=== PATIENT | male | born 1985 | race American Indian/Alaskan Native ===

== ENCOUNTER 2020-12-12 06:41 | Emergency (ER) | payer SELFPAY ==
[2020-12-12 06:51] VITALS: BP 140/77
[2020-12-12] MEDS ORDERED: ASPIRIN 325 MG TAB PO ONE (06:57)
[2020-12-12 07:35] LABS: Basophils % (Auto) 0.5 % (0.0-1.8); Eosinophils # (Auto) 0.1 K/mm3 (0.0-0.4); Eosinophils % (Auto) 1.4 % (0.0-4.3); Hematocrit 44.6 % (35.5-45.6); Hemoglobin 15.3 gm/dl (11.8-15.2); Lymphocytes # (Auto) 1.1 K/mm3 (1.2-5.4); Lymphocytes % (Auto) 25.7 % (13.4-35.0); Mean Corpuscular HGB Conc 34 % (32-34); Mean Corpuscular Volume 87 fl (84-94); Monocytes # (Auto) 0.3 K/mm3 (0.0-0.8); Monocytes % (Auto) 7.2 % (0.0-7.3); Platelet Count 293 K/mm3 (140-440); Red Blood Count 5.13 M/mm3 (3.65-5.03); Red Cell Distribution Width 13.2 % (13.2-15.2)
[2020-12-12 07:45] LABS: INR 0.84 (0.87-1.13)
[2020-12-12 08:01] LABS: Alanine Aminotransferase 33 units/L (7-56); Albumin 4.1 g/dL (3.9-5); BUN/Creatinine Ratio 8; Blood Urea Nitrogen 8 mg/dL (9-20); Calcium 8.6 mg/dL (8.4-10.2); Hemolysis Index 9
--- NOTE | 2020-12-12 08:01 | Emergency Department Report ---
ED Chest Pain HPI - General Chief Complaint: Chest Pain Stated Complaint: HEAVY LIFTING/CHEST PAIN Time Seen by Provider: 12/12/20 08:00 Source: patient Mode of arrival: Ambulatory Limitations: No Limitations - History of Present Illness Initial Comments: Patient is a 34-year-old -[place] male that came to the ER after lifting a heavy object at work and experiencing what he calls muscle spasm across his left chest into his left shoulder. Patient denies nausea vomiting or diaphoresis. He has no cardiac history. He is otherwise healthy. He has no risk factors for coronary disease. Pain is worse with movement. Patient denies fall or trauma. Labs, x-ray and EKG noted as ordered by patrol supervisor Complaint: chest pain -: Sudden, hour(s) Onset: other Pain Location: left chest Pain Radiation: other Severity: mild Quality: other (spasm) Improves With: nothing Worsens With: nothing Treatments Prior to Arrival: none Aspirin use within the Past 7 Days: (0) No - Related Data Previous Rx's Medication Instructions Recorded Last Taken Type Cyclobenzaprine [Flexeril] 10 mg PO TID PRN #10 tablet 12/12/20 Unknown Rx Ibuprofen Oral Liqd [Motrin] 800 mg PO TID PRN #500 ml 12/12/20 Unknown Rx Allergies Allergy/AdvReac Type Severity Reaction Status Date / Time blueberry Allergy Itching Verified 12/12/20 06:47 Heart Score - HEART Score History: Slightly suspicious EKG: Normal Age: < 45 Risk factors: No known risk factors Troponin: < normal limit HEART Score: 0 - EKG Read Time Time EKG Completed: 07:00 EKG Read Time: 07:00 - Critical Actions Critical Actions: 0-3 pts:0.9-1.7%risk of adverse cardiac event.Candidate for discharge ED Review of Systems ROS: Stated complaint: HEAVY LIFTING/CHEST PAIN Other details as noted in HPI Comment: All other systems reviewed and negative ED Past Medical Hx - Past Medical History Previous Medical History?: No - Surgical History Past Surgical History?: Yes Additional Surgical History: cyst removal on left side of neck - Family History Family history: no significant - Social History Smoking Status: Never Smoker Substance Use Type: None - Medications Home Medications: Home Medications Medication Instructions Recorded Confirmed Last Taken Type Cyclobenzaprine [Flexeril] 10 mg PO TID PRN #10 tablet 12/12/20 Unknown Rx Ibuprofen Oral Liqd [Motrin] 800 mg PO TID PRN #500 ml 12/12/20 Unknown Rx ED Physical Exam - General Limitations: No Limitations General appearance: alert, in no apparent distress - Head Head exam: Present: atraumatic, normocephalic - Eye Eye exam: Present: normal appearance - ENT ENT exam: Present: mucous membranes moist - Neck Neck exam: Present: normal inspection - Respiratory Respiratory exam: Present: normal lung sounds bilaterally. Absent: respiratory distress - Cardiovascular Cardiovascular Exam: Present: regular rate, normal rhythm. Absent: systolic murmur, diastolic murmur, rubs, gallop - GI/Abdominal GI/Abdominal exam: Present: soft, normal bowel sounds - Rectal Rectal exam: Present: deferred - Extremities Exam Extremities exam: Present: normal inspection - Back Exam Back exam: Present: normal inspection - Neurological Exam Neurological exam: Present: alert, oriented X3 - Psychiatric Psychiatric exam: Present: normal affect, normal mood - Skin Skin exam: Present: warm, dry, intact, normal color. Absent: rash ED Course Vital Signs 12/12/20 06:45 Temperature 99.0 F Pulse Rate 69 Respiratory 18 Rate Blood Pressure 140/77 O2 Sat by Pulse 97 Oximetry HÉCTOR score - Héctor Score Age > 65: (0) No Aspirin use within the Past 7 Days: (0) No 3 or more CAD Risk Factors: (0) No 2 or more Angina events in past 24 hrs: (0) No Known CAD with more than 50% Stenosis: (0) No Elevated Cardiac Markers: (0) No ST Deviation Greater than 0.5mm: (0) No HÉCTOR Score: 0 ED Medical Decision Making - Lab Data Result diagrams: 12/12/20 07:21 12/12/20 07:21 - EKG Data EKG shows normal: sinus rhythm Rate: normal - EKG Data When compared to previous EKG there are: no significant change Interpretation: no acute changes - Radiology Data Radiology results: report reviewed, image reviewed [facility] - Medical Decision Making Vital Signs 12/12/20 06:45 Temperature 99.0 F Pulse Rate 69 Respiratory 18 Rate Blood Pressure 140/77 O2 Sat by Pulse 97 Oximetry Labs 12/12/20 12/12/20 12/12/20 07:21 07:21 07:21 WBC 4.3 L RBC 5.13 H Hgb 15.3 H Hct 44.6 MCV 87 MCH 30 MCHC 34 RDW 13.2 Plt Count 293 Lymph % (Auto) 25.7 [place] % (Auto) 7.2 Eos % (Auto) 1.4 Baso % (Auto) 0.5 Lymph # (Auto) 1.1 L [place] # (Auto) 0.3 Eos # (Auto) 0.1 Baso # (Auto) 0.0 Seg Neutrophils % 65.2 Seg Neutrophils # 2.8 PT 13.1 INR 0.84 L Sodium 139 Potassium 4.0 Chloride 105.2 Carbon Dioxide 26 Anion Gap 12 BUN 8 L Creatinine 1.0 Estimated GFR > 60 BUN/Creatinine Ratio 8 Glucose 105 H Calcium 8.6 Total Bilirubin 0.50 AST 23 ALT 33 Alkaline Phosphatase 47 Troponin T < 0.010 Total Protein 6.2 L Albumin 4.1 Albumin/Globulin Ratio 2.0 Labs, EKG and x-ray all normal: As ordered by RN in triage Pain is reproducible with movement. Patient has no cardiac risk factors. No family history is a non-smoker. He has never smoked. Patient states that he was told it would look better if he came to the emergency room. Patient medicated with Motrin liquid. He cannot swallow pills. Patient discharged home with discharge plan of care including PCP follow-up. Patient verbalizes understanding of discharge plan of care. On discharge patient is nontoxic [id number] in no acute distress. He is ambulating and taking p.o. - Differential Diagnosis muscle pain v acs v chest wall pain Critical care attestation.: If time is entered above; I have spent that time in minutes in the direct care of this critically ill patient, excluding procedure time. ED Disposition Clinical Impression: Chest wall pain, Pulled muscle Disposition: DC-01 TO HOME OR SELFCARE Is pt being admited?: No Does the pt Need Aspirin: No Condition: Stable Instructions: Nonspecific Chest Pain, Adult Additional Instructions: warm compresses today NO ice stretching will help meds as ordered follow up with pcp if pain persists referral below Prescriptions: Cyclobenzaprine [Flexeril] 10 mg PO TID PRN #10 tablet PRN Reason: Muscle Spasm Ibuprofen Oral Liqd [Motrin] 800 mg PO TID PRN #500 ml PRN Reason: Pain, Moderate (4-6) Referrals: JT LANDRUM MD [Staff Physician] - 3-5 Days Forms: Work/School Release Form(ED) Time of Disposition: 08:01
[2020-12-12] MEDS ORDERED: IBUPROFEN ORAL LIQD 100 MG/5 ML ORAL.LIQD PO ONE (08:08)
--- NOTE | 2020-12-12 09:45 | XRay Report ---
CHEST 2 VIEWS INDICATION: Chest Pain. COMPARISON: None FINDINGS: Support devices: None. Heart: Within normal limits. Lungs/pleura: No acute air space or interstitial disease. No pneumothorax. Additional findings: None. IMPRESSION: No acute findings. Signer Name: Emory Orozco Jr, MD Signed: 12/12/2020 9:41 AM Workstation Name: [id number]
--- NOTE | 2020-12-12 10:17 | Electrocardiograph Report ---
[facility] Test Date: 2020-12-12 Test Time: 06:49:14 Pat Name: TEODORO DEWEY Department: Room: Gender: M [employer] Driver: BREANNA : 1985 Requested By: STEVIE BROWN Order Number: [id number] Reading MD: Rayshawn Arellano Measurements Intervals [place] Rate: 71 P: -26 IA: 148 QRS: 51 QRSD: 90 T: 4 QT: 377 QTc: 409 Interpretive Statements Sinus rhythm No previous ECG available for comparison Electronically Signed On 12-12-2020 10:16:53 EDT by Rayshawn Arellano
== END 2020-12-12 08:32 | disposition home or self-care (01) ==
LOC: ED 06:41
DX: R07.89 Other chest pain (principal); M79.18 Myalgia, other site; Z98.890 Other specified postprocedural states; Z91.018 Allergy to other foods; Z79.899 Other long term (current) drug therapy
CPT/HCPCS: 36415; 71046; 80053; 84484; 85025; 85610; 93005; 99284